=== PATIENT | male | born 1975 | race Caucasian/White ===

== ENCOUNTER 2016-05-26 06:21 | Observation (INO) | payer OTHER ==
[~2016-05-26] VITALS: Ht 177.8 cm; Wt 89.9 kg
[2016-05-26] MEDS ORDERED: ASPI-232 PO (06:48)
[2016-05-26] MEDS ORDERED: METO50TA16 PO (06:48)
[2016-05-26] MEDS ORDERED: ATOR-24 PO (06:48)
[2016-05-26] MEDS ORDERED: LISI-461 PO (06:48)
[2016-05-26] MEDS ORDERED: BUPR200T2 PO (06:48)
[2016-05-26] MEDS ORDERED: BACITRACIN 50000 UNIT VIAL ONE (06:58)
[2016-05-26] MEDS ORDERED: LIDOCAINE HCL 1% 20 ML VIAL ONE (06:58)
[2016-05-26] MEDS ORDERED: BACITRACIN OINT 0.9 GM PKT ONE (06:58)
[2016-05-26] MEDS ORDERED: CEFAZOLIN 1000MG/55 ML D5W IV STA (07:05)
[2016-05-26 07:07] VITALS: BP 128/66; PULSE 55; TEMP 36.8; O2SAT 96; BMI 27.0
[2016-05-26] MEDS ORDERED: LACTATED RINGER'S 1000ML 1,000 ML IV SCH (07:15)
[2016-05-26] MEDS ORDERED: FENTANYL CITRATE INJ 50 MCG/1 ML 2 ML VIAL ONE ×2 (08:14→09:03)
[2016-05-26] MEDS ORDERED: MIDAZOLAM HCL 5 MG/ML 1 ML VIAL ONE ×2 (08:15→09:03)
--- NOTE | 2016-05-26 08:30 | Procedure Note ---
Pre-Mod Sedation Assessment General Date of Moderate Sedation: May 26, 2016. Vital Signs: Vital Signs Past 12 Hours Date Time Temp Pulse Resp B/P Pulse Ox O2 Delivery O2 Flow Rate FiO2 05/26/16 07:07 36.8 55 18 128/66 96 Room Air Review Cardiovascular: regular rate, rhythm Abdomen: normal bowel sounds Lungs: lungs clear Pre-Sedation Airway Assessment Oral Cavity: WNL Smoking Status: Current Every Day Smoker Procedure Planning Contraindications-for Mod Sed: None Yes Notes The planned sedation has been discussed with the patient and consent obtained. I have identified the patient, determined the appropriateness of sedation and have assessed the patient immediately prior to the procedure. All medicine(s) and interventions are by my order.
--- NOTE | 2016-05-26 08:30 | History & Physical Bridge Note ---
H&P Re-Evaluation Bridge Note: I have examined the patient, reviewed the History & Physical and in the interval since the performance of the History & Physical I have noted the following changes of clinical significance: No changes noted. Discussed indications, procedure, risks and alternatives and he understands and agrees to proceed. Consent obtained.
--- NOTE | 2016-05-26 10:27 | Procedure Note ---
Post-Mod Sedation Assessment General Date of Moderate Sedation May 26, 2016. Vital Signs: Vital Signs Past 12 Hours Date Time Temp Pulse Resp B/P Pulse Ox O2 Delivery O2 Flow Rate FiO2 05/26/16 10:15 64 16 122/65 97 Nasal Cannula 6 05/26/16 10:00 64 16 121/74 97 Nasal Cannula 6 05/26/16 09:44 64 16 126/82 97 Nasal Cannula 6 05/26/16 07:07 36.8 55 18 128/66 96 Room Air Review - Discharge Criteria Vital Signs Stable: Yes Alert/Oriented/Conversant: Yes Returned to Baseline Mental St: Yes Nausea Absent/Minimal: Yes Pain/Discomfort/Absent/Minimal: Yes Normal/Baseline Respirations: Yes Active Bleeding?: No
--- NOTE | 2016-05-26 10:29 | Cardiology Procedure Brief Nt ---
Preliminary Cardiology Note Procedure Date May 26, 2016. Pre-Procedure Diagnosis Ischemic cardiomyopathy Post-Procedure Diagnosis Same Procedure(s) Performed L subclavian venogram Single chamber ICD implantation Supervisor Cigar Making Machine Dr. Rocha Import/Export Clerk(s) none Estimated Blood Loss 30 cc Preliminary Findings Good lead position, good measurements Recommendations Monitor overnight Specimens None Anesthesia local with sedation Complication(s) None Disposition PCU
[2016-05-26] MEDS: KETOROLAC TROMETHAMINE 10 MG TAB PO PRN ×3 (11:00→23:55)
[2016-05-26] MEDS ORDERED: IV FLUIDS COMPLETED PRN (11:30)
[2016-05-26 12:38] VITALS: BP 117/76; PULSE 57; TEMP 36.3; Ht 177.8 cm; Wt 89.9 kg
[2016-05-26 15:45] VITALS: BP 113/69; PULSE 60; TEMP 36.5; O2SAT 94
[2016-05-26] MEDS: CEFAZOLIN IV 1,000 MG in DEXTROSE 5% 50ML 50 ML IV SCH ×2 (17:46→23:59)
[2016-05-26 20:00] VITALS: O2SAT 94
[2016-05-26] MEDS: BuPROPion SR 100 MG TABCR PO SCH (20:55)
[2016-05-26] MEDS: METOPROLOL TARTRATE 50 MG TAB PO SCH (20:57)
[2016-05-26] MEDS: ACETAMINOPHEN 325 MG TAB PO PRN (21:04)
[2016-05-26 23:13] VITALS: BP 117/75; PULSE 54; TEMP 36.6; O2SAT 96
[2016-05-27 00:01] VITALS: O2SAT 96
[2016-05-27] MEDS: ACETAMINOPHEN 325 MG TAB PO PRN (02:54)
[2016-05-27 04:20] VITALS: BP 102/65; PULSE 59; TEMP 36.8; O2SAT 94
--- NOTE | 2016-05-27 07:24 | DIAGNOSTIC IMAGING REPORT ---
CHEST 2 VIEWS ROUTINE CLINICAL HISTORY: Pacemaker insertion. COMPARISON STUDY: No previous studies for comparison. FINDINGS: There is a single lead left subclavian pacer/AICD. Lead tip projects over the right ventricle. Lead is intact. No pneumothorax is present. There is no evidence of pulmonary edema. Cardiac size is at the upper limits of normal. There is no pneumothorax or pleural effusion. IMPRESSION: No pneumothorax status post placement of a left subclavian pacer/AICD. Electronically signed by: Jose D Child M.D. 05/27/2016 7:22 AM Dictated Date/Time: 05/27/2016 7:21 AM
[2016-05-27 07:48] VITALS: BP 122/71; PULSE 63; TEMP 36.9; O2SAT 95
[2016-05-27] MEDS: METOPROLOL TARTRATE 50 MG TAB PO SCH (08:19)
[2016-05-27] MEDS: CEFAZOLIN IV 1,000 MG in DEXTROSE 5% 50ML 50 ML IV SCH (08:22)
[2016-05-27] MEDS ORDERED: KETOROLAC TROMETHAMINE 30 MG/ML VIAL ONE (08:29)
[2016-05-27] MEDS ORDERED: ATORVASTATIN 20 MG TAB PO SCH (09:00)
[2016-05-27] MEDS ORDERED: LISINOPRIL 10 MG TAB PO SCH (09:00)
[2016-05-27] MEDS ORDERED: ASPIRIN 81 MG ECTAB PO SCH (09:00)
[2016-05-27] MEDS: KETOROLAC TROMETHAMINE 10 MG TAB PO PRN (09:02)
[2016-05-27] MEDS: BuPROPion SR 100 MG TABCR PO SCH (09:02)
[2016-05-27] MEDS ORDERED: METO-217 PO (09:22)
--- NOTE | 2016-05-27 09:24 | Discharge Instructions ---
Discharge Instructions Admission Ischemic Cardiomyopathy Discharge Discharge Diagnosis / Problem: S/P Single-chamber ICD implantation Discharge Goals Goal(s): Improve disease control Activity Recommendations Activity Limitations: as noted below . Instructions / Follow-Up Instructions / Follow-Up ACTIVITY RECOMMENDATIONS: * Do not raise affected arm over head for 2 weeks. SPECIAL CARE INSTRUCTIONS: * If bleeding occurs, apply direct pressure to area for 5 minutes. * Call your doctor if you have severe pain, fever, drainage or bleeding at site. * Keep dressing on and dry for 48 hours then remove. * Keep any scheduled doctor's appointment. * Implant Card - hand held device with website information given. SKIN IRRITATION: * You may experience some redness and/or swelling in the area where radiation was administered. If any skin irritation occurs, please contact your family physician. FOLLOW UP VISIT: Keep any scheduled doctor appointments. Current Hospital Diet Patient's current hospital diet: AHA Diet (Heart Healthy) Discharge Diet Recommended Diet: AHA Diet (Heart Healthy) Pending Studies Studies pending at discharge: no Medical Emergencies . Who to Call and When: Medical Emergencies: If at any time you feel your situation is an emergency, please call 911 immediately. . Non-Emergent Contact Non-Emergency issues call your: [facility] . . "Provider Documentation" section prepared by Carmelita Knox. VTE Core Measure Inpt VTE Proph given/why not?: Treatment not indicated
[2016-05-27 09:51] VITALS: BP 122/71; PULSE 63; TEMP 36.9; O2SAT 95
--- NOTE | 2016-05-27 10:06 | Discharge Summary ---
Discharge Summary Admission Date: May 26, 2016 at 10:32 Discharge Date: May 27, 2016 Discharge Disposition: Home Primary Diagnosis: Ischemic cardiomyopathy Procedures: Single-chamber ICD implantation Discharge Instructions Last Recorded Wt (Kilograms): 89.900 Activity Recommendations: limitations as noted below Diet At Discharge: low sodium, low cholesterol Allergies: Uncoded Allergies: RADISHES (Adverse Reaction, Mild, lips swollen, 05/26/16) Additional Instructions: ACTIVITY RECOMMENDATIONS: * Do not raise affected arm over head for 2 weeks. SPECIAL CARE INSTRUCTIONS: * If bleeding occurs, apply direct pressure to area for 5 minutes. * Call your doctor if you have severe pain, fever, drainage or bleeding at site. * Keep dressing on and dry for 48 hours then remove. * Keep any scheduled doctor's appointment. * Implant Card - hand held device with website information given. SKIN IRRITATION: * You may experience some redness and/or swelling in the area where radiation was administered. If any skin irritation occurs, please contact your family physician. FOLLOW UP VISIT: Keep any scheduled doctor appointments. Special Care: Call your doctor if: * Temperature above 101 degrees * Pain not relieved by pain medicine ordered * There is increased drainage or redness from any incision * You have any unanswered questions or concerns. Avoid all tobacco products. If you need help to stop smoking, call [place]'s FREE QUITLINE at . This is a free call. Admission HPI Mr. Wakefield is a 40-year-old prisoner at [facility] with a history of presumed ischemic cardiomyopathy, hypertension, family history of coronary artery disease who presents today as a new patient for management of his cardiomyopathy and question need for defibrillator. Patient's prior cardiac history begins approximately 8 months ago after was noted to have an abnormal EKG suggestive of inferior FL. He was asymptomatic at the time and underwent a dipyridamole Myoview in August 24 which showed EF 30- 35% and a large size resting perfusion defect involving the inferior wall with no reversibility. There was corresponding inferior severe hypokinesis. Per prior pbx repairer notes significant asymptomatic ventricular ectopy was noted during his stress test. He was started on appropriate medical therapy including Toprol-XL and lisinopril and returned for follow-up 4 months later. At that time underwent a transthoracic echocardiogram which again showed moderate to severe LV dysfunction with an EF 30-35%. The inferior and inferior septal simon were severely hypokinetic to akinetic. Since that time patient denies any change in symptoms. He endorses mild chest discomfort with running more than 2 miles. This discomfort is unchanged over the last several years. Denies any palpitations, presyncope, orthopnea, PND or lower extremity edema. He denies any bleeding issues or active infections. Prior cardiovascular studies: Pharmacologic SPECT) 07/2015): Large resting perfusion defect involving inferior wall without significant reversibility. LVEF 33% with severe inferior wall hypokinesis. Frequent PVCs. Echo (11/2015): Mildly dilated LV severely hypokinetic to akinetic inferior to inferior septal wall. Overall EF 30-34%. Jdcr-so-rxhlhwaf mitral regurgitation. Mild TR Admission Physical Exam General: Comfortable, no acute distress, muscular Eyes: Sclerae anicteric, extraocular movements intact HENT: Oropharynx clear mucous membranes moist Neck: Supple, no lymphadenopathy, no thyromegaly. Lungs: Clear to auscultation bilaterally, no rhonchi or wheezes Cardiac: Regular rate and rhythm, no murmurs, rubs or gallops. No JVD. No peripheral edema. Extremities well perfused. Vascular: Normal carotid upstrokes, no bruits. 2+ radial, femoral, DP and PT pulses. No varicosities. Abdomen: Soft, nontender, nondistended positive bowel sounds. No hepatosplenomegaly Musculoskeletal: Normal gait. No joint deformities Skin: No rashes or lesions. Neuro: Cranial nerves 2-12 grossly intact, remainder exam nonfocal Psych: Alert orient x3, normal affect and mood Hospital Course Patient is a 40-year-old male with ischemic cardiomyopathy who underwent single- chamber ICD implantation for primary prevention. He tolerated the procedure well. Device check the following day showed excellent sensing and pacing characteristics. CXR showed good lead placement and no evidence of pneumothorax. He was deemed stable for discharge on 05/27/16. He will have follow -up in 1 month for device check. Total time spent on discharge = This includes examination of the patient, discharge planning, medication reconciliation, and communication with other providers.
--- NOTE | 2016-06-27 00:58 | OPERATIVE REPORT ---
DATE OF OPERATION: 05/26/2016 PREOPERATIVE DIAGNOSIS: Ischemic cardiomyopathy. POSTOPERATIVE DIAGNOSIS: Same. PROCEDURE: 1. Left subclavian venogram. 2. Single-chamber ICD implantation. SURGEON: Doc Rocha MD. ANESTHESIA: Local with sedation. HISTORY: This is a 40-year-old male who has a history of severe ischemic cardiomyopathy, although he does not currently have ischemia as assessed by stress testing. His cardiomyopathy has been present for some time, his left ventricular ejection fraction is in the 30-35% range, and therefore, he is to undergo ICD implantation for primary prevention of sudden cardiac . After obtaining informed consent for the procedure, he was brought to the laboratory on the morning of 05/26/2016, being n.p.o. after midnight. He was identified in the laboratory, prepped and draped in standard sterile manner for a left-sided ICD implantation. The left prepectoral region was anesthetized with 1% lidocaine local anesthetic, to aid in venipuncture, dye was injected via left arm IV site to opacify the left subclavian vein. Once accomplished, left subclavian venipuncture was performed by percutaneous technique and a guidewire placed through the left subclavian vein into the superior vena cava. The area was further infiltrated with 1% lidocaine local anesthetic and a 6 cm incision was made parallel to left clavicle and 2 cm below it and carried down to the anterior pectoralis fascia. An ICD pocket was formed by blunt dissection anterior to the pectoralis fascia and a bacitracin-soaked sponge (50,000 units in 50 mL normal saline solution) was placed in the pocket. A 10.5-Azeri Medtronic lead introducer was placed over the guidewire into the left subclavian vein, dilator and guidewire were removed, and a bipolar active fixation steroid-tipped defibrillator lead was advanced through introducer into the superior vena cava. The guidewire was placed back through introducer and introducer stripped away from lead and guidewire. Using a curved stylette, the ventricular lead was advanced through the right ventricular outflow tract into the pulmonary artery, and then using a straight stylette, was positioned in the right ventricular apex. Once in position, the ventricular pacing threshold was evaluated in bipolar configuration at a pulse width of 0.5 milliseconds. The final ventricular pacing threshold was 0.7 volts with a current of 1.4 milliamp, 5-volt lead impedance was 552 ohms, and R-waves were sensed at 11.2 millivolts. Diaphragmatic pacing was not present with a 10-volt bipolar output. Once the lead was in position, it was attached to the anterior pectoralis fascia using 2 sutures of 2-0 silk around the lead collar. The bacitracin-soaked sponge was removed from the pocket, the guidewire was removed from left subclavian vein, and hemostasis was obtained. The ICD (Medtronic Viva) was attached to the leads and found to be functioning normally. It was placed in the pocket with the leads coiled beneath it and the incision was closed with a running double subcutaneous closure of 3-0 Vicryl, followed by a running subcuticular skin closure of 4-0 Vicryl. Bacitracin ointment was placed on the incision and a pressure dressing applied. The patient tolerated the procedure well, there were no complications, and estimated blood loss was 30 mL. The patient was transferred to the telemetry unit for monitoring. The ventricular lead is a Medtronic model 6947M, serial #[id number], and is a bipolar active fixation steroid-tipped dual-coil defibrillator lead. The ICD is a Medtronic Visia AF MRI VR SureScan, model LCQW9Y7, serial #[id number]. ICD was reprogrammed in the laboratory to final settings. MAGGIE
== END 2016-05-27 12:35 ==
LOC: C.ACU 06:21 → C.2T 10:32
PROVIDERS: ADMIT Internal Medicine Cardiovascular Disease; ATTEND Internal Medicine Cardiovascular Disease
DX: I25.5 Ischemic cardiomyopathy (principal); F90.2 Attention-deficit hyperactivity disorder, combined type; I10 Essential (primary) hypertension; F17.210 Nicotine dependence, cigarettes, uncomplicated; I25.2 Old myocardial infarction; Z79.82 Long term (current) use of aspirin; Z82.49 Family history of ischemic heart disease and other diseases of the circulatory system